=== PATIENT | female | born 1960 | race Caucasian/White ===

== ENCOUNTER 2023-08-30 18:40 | Inpatient (IN) | payer OTHER ==
[~2023-08-30] VITALS: Ht 160 cm; Wt 93.1 kg
[2023-08-30] MEDS ORDERED: ZOLO100T PO (19:02)
[2023-08-30] MEDS ORDERED: ONDA4TAB6 SL (19:02)
[2023-08-30] MEDS ORDERED: BUSP5TA PO (19:02)
[2023-08-30] MEDS ORDERED: LOSA50TA28 PO (19:05)
[2023-08-30] MEDS ORDERED: HYDR12.55 PO (19:05)
[2023-08-30 19:56] LABS: BASO % 0.1 % (0.0-1.0); EOS # 0.1 10^3/uL (0.0-0.5); HEMATOCRIT 39.6 % (36.0-47.0); HEMOGLOBIN 12.8 g/dl (12.0-15.5); LYMPH # 1.2 10^3/uL (1.5-5.0); LYMPH % 12.9 % (24.0-44.0); MEAN CORPUSCULAR HEMOGLOBIN 28.4 pg (27.0-33.0); MEAN CORPUSCULAR HGB CONC 32.3 g/dl (32.0-36.5); MONO # 0.5 10^3/uL (0.0-0.8); MONO % 5.3 % (2.0-8.0); NEUTROPHILS # 7.6 10^3/uL (1.5-8.5); NEUTROPHILS % 80.4 % (36.0-66.0); PLATELET COUNT, AUTOMATED 294 10^3/uL (150-450); WHITE BLOOD COUNT 9.4 10^3/uL (4.0-10.0)
[2023-08-30 20:01] LABS: LIPASE 36 U/L (12-53)
[2023-08-30 20:07] LABS: ALBUMIN 3.4 G/DL (3.2-5.2); ALKALINE PHOSPHATASE 69 U/L (46-116); ALT/SGPT 22 U/L (7.0-40); AST/SGOT 24 U/L (<34); BILIRUBIN,DIRECT 0.2 MG/DL (<0.4); BILIRUBIN,TOTAL 0.5 MG/DL (0.3-1.2); BLOOD UREA NITROGEN 11 MG/DL (9-23); CALCIUM LEVEL 9.4 MG/DL (8.3-10.6); CARBON DIOXIDE LEVEL 28 MMOL/L (20-31); CHLORIDE LEVEL 105 MMOL/L (98-107); CREATININE FOR GFR 0.79 MG/DL (0.55-1.30); GLOMERULAR FILTRATION RATE > 60.0 (>45); GLUCOSE, FASTING 124 MG/DL (74-106); POTASSIUM SERUM 2.9 MMOL/L (3.5-5.1); SODIUM LEVEL 141 MMOL/L (136-145); TOTAL PROTEIN 7.6 G/DL (5.7-8.2)
[2023-08-30] MEDS ORDERED: KETOROLAC 30 MG/ML 1ML VIAL IV ONE (20:30)
[2023-08-30] MEDS ORDERED: POTASSIUM CHLORIDE 10MEQ SR TABLET PO ONE (20:35)
[2023-08-30] MEDS ORDERED: ISOVUE-370 76% 100ML VIAL As Ordered ONE (20:36)
[2023-08-30 20:57] LABS: MAGNESIUM LEVEL 1.8 MG/DL (1.8-2.4)
[2023-08-30] MEDS: GASTROGRAFIN SOLUTION 30ML PO SCH ×2 (21:09→21:45)
[2023-08-30] MEDS: KCL 40MEQ in NS 1000ML 1,000 ML IV SCH (21:09)
[2023-08-30] MEDS ORDERED: MORPHINE 4 MG/ML 1ML VIAL IV ONE (23:35)
[2023-08-31] MEDS ORDERED: ACETAMINOPHEN *IV* 1,000 MG in IV 1 EA IV ONE (00:35)
[2023-08-31] MEDS ORDERED: PIPERACILLIN/TAZOBACTAM SOD 4.5 GM in D5W MINI-BAG PLUS 50 ML IV ONE (00:35)
[2023-08-31] MEDS ORDERED: HYDROMORPHONE HCL 0.5 MG/ 0.5 ML SYRINGE IV PRN (03:25)
[2023-08-31] MEDS ORDERED: UNRESOLVED CLARIFICATION ENTRY XX STA (03:38)
[2023-08-31 03:43] LABS: RSV AMPLIFICATION NEGATIVE (NEGATIVE)
[2023-08-31] MEDS ORDERED: hydrALAZINE 20MG/ML 1ML VIAL IV PRN (05:50)
[2023-08-31] MEDS: LR 1,000 ML IV SCH ×2 (06:28→17:39)
[2023-08-31] MEDS: HEPARIN SOD (PORCINE) 5000UNITS/ML 1ML VIAL/SYRINGE SC SCH ×3 (06:29→21:29)
[2023-08-31] MEDS: HYDROMORPHONE HCL 0.5 MG/ 0.5 ML SYRINGE IV PRN ×2 (06:30→21:31)
[2023-08-31] MEDS ORDERED: VALS1TAB67 PO (07:51)
[2023-08-31] MEDS ORDERED: ROSU5TAB5 PO (08:02)
[2023-08-31] MEDS ORDERED: HOME MED LIST COMPLETE! XX SCH (08:05)
[2023-08-31] MEDS: PIPERACILLIN/TAZOBACTAM SOD 3.375 GM in D5W MINI-BAG PLUS 50 ML IV SCH ×3 (09:36→21:29)
[2023-08-31] MEDS: KCL 40MEQ in NS 1000ML 1,000 ML IV SCH (12:29)
[2023-08-31] MEDS ORDERED: HYDROMORPHONE HCL 0.5 MG/ 0.5 ML SYRINGE IV ONE (13:15)
[2023-08-31] MEDS ORDERED: KETOROLAC 30 MG/ML 1ML VIAL IV ONE (13:15)
[2023-08-31] MEDS ORDERED: NITROGLYCERIN 2% OINT 1 GM *U/D* PKT TOP ONE (13:45)
[2023-08-31] MEDS ORDERED: cloNIDine 0.1MG TABLET PO ONE (13:45)
[2023-08-31] MEDS ORDERED: VALSARTAN 80 MG TAB (DIOVAN) PO ONE (13:45)
[2023-08-31 18:25] VITALS: BP 172/80; TEMP 97.7; O2SAT 96
[2023-08-31 19:48] VITALS: BP 162/77
[2023-08-31] MEDS: ONDANSETRON 4MG 2ML VIAL IV PRN (21:41)
[2023-08-31 22:00] VITALS: TEMP 98; O2SAT 94
[2023-08-31 22:07] LABS: BLOOD UREA NITROGEN 8 MG/DL (9-23); CALCIUM LEVEL 7.8 MG/DL (8.3-10.6); CARBON DIOXIDE LEVEL 27 MMOL/L (20-31); CHLORIDE LEVEL 109 MMOL/L (98-107); CREATININE FOR GFR 0.72 MG/DL (0.55-1.30); GLOMERULAR FILTRATION RATE > 60.0 (>45); GLUCOSE, FASTING 100 MG/DL (74-106); POTASSIUM SERUM 3.6 MMOL/L (3.5-5.1); SODIUM LEVEL 141 MMOL/L (136-145)
[2023-09-01] VITALS (10 sets, daily range): BP systolic 116–166; BP diastolic 67–96; TEMP 97–98.2; O2SAT 78–96
[2023-09-01] MEDS: LR 1,000 ML IV SCH ×2 (01:37→03:25)
[2023-09-01] MEDS: KCL 40MEQ in NS 1000ML 1,000 ML IV SCH ×2 (01:37→13:00)
[2023-09-01] MEDS: PIPERACILLIN/TAZOBACTAM SOD 3.375 GM in D5W MINI-BAG PLUS 50 ML IV SCH ×4 (03:14→21:14)
[2023-09-01] MEDS ORDERED: ACETAMINOPHEN *IV* 1,000 MG in IV 1 EA IV ONE (05:20)
[2023-09-01] MEDS: HEPARIN SOD (PORCINE) 5000UNITS/ML 1ML VIAL/SYRINGE SC SCH ×3 (05:23→21:14)
[2023-09-01] MEDS: ONDANSETRON 4MG 2ML VIAL IV PRN ×2 (05:23→14:51)
[2023-09-01] MEDS ORDERED: ACETAMINOPHEN TAB 650MG DOSE (2X325MG) PO ONE (05:25)
[2023-09-01] MEDS: VALSARTAN 80 MG TAB (DIOVAN) PO SCH (05:42)
[2023-09-01] MEDS ORDERED: **hydrALAZINE** 10 MG TAB PO PRN (07:15)
[2023-09-01 07:52] LABS: BLOOD UREA NITROGEN 7 MG/DL (9-23); CALCIUM LEVEL 7.8 MG/DL (8.3-10.6); CARBON DIOXIDE LEVEL 28 MMOL/L (20-31); CHLORIDE LEVEL 111 MMOL/L (98-107); CREATININE FOR GFR 0.77 MG/DL (0.55-1.30); GLOMERULAR FILTRATION RATE > 60.0 (>45); GLUCOSE, FASTING 101 MG/DL (74-106); POTASSIUM SERUM 4.1 MMOL/L (3.5-5.1); SODIUM LEVEL 143 MMOL/L (136-145)
[2023-09-01] MEDS ORDERED: VALSARTAN 80 MG TAB (DIOVAN) PO ONE (08:00)
[2023-09-01] MEDS ORDERED: ONDANSETRON 4MG 2ML VIAL IV ONE (08:00)
[2023-09-01] MEDS ORDERED: cloNIDine 0.1MG TABLET PO ONE (09:00)
[2023-09-01 09:49] LABS: ALBUMIN 2.4 G/DL (3.2-5.2); ALKALINE PHOSPHATASE 55 U/L (46-116); ALT/SGPT 17 U/L (7.0-40); AST/SGOT 20 U/L (<34); BILIRUBIN,TOTAL 0.6 MG/DL (0.3-1.2); TOTAL PROTEIN 5.8 G/DL (5.7-8.2)
[2023-09-01 09:59] LABS: BASO % 0.7 % (0.0-1.0); EOS # 0.1 10^3/uL (0.0-0.5); EOS % 2.5 % (0.0-3.0); HEMATOCRIT 33.1 % (36.0-47.0); LYMPH # 1.2 10^3/uL (1.5-5.0); LYMPH % 27.4 % (24.0-44.0); MEAN CORPUSCULAR HEMOGLOBIN 28.7 pg (27.0-33.0); MEAN CORPUSCULAR HGB CONC 31.4 g/dl (32.0-36.5); MEAN CORPUSCULAR VOLUME 91.4 fl (80.0-96.0); MONO # 0.5 10^3/uL (0.0-0.8); MONO % 11.1 % (2.0-8.0); NEUTROPHILS # 2.5 10^3/uL (1.5-8.5); NEUTROPHILS % 58.1 % (36.0-66.0); PLATELET COUNT, AUTOMATED 194 10^3/uL (150-450); RED BLOOD COUNT 3.62 10^6/uL (4.00-5.40); WHITE BLOOD COUNT 4.3 10^3/uL (4.0-10.0)
[2023-09-01 10:00] LABS: HEMOGLOBIN 10.4 g/dl (12.0-15.5)
[2023-09-01] MEDS ORDERED: ACETAMINOPHEN 500 MG TAB PO ONE (16:35)
[2023-09-01] MEDS ORDERED: RIZATRIPTAN BENZOATE 10 MG TAB PO PRN (16:35)
[2023-09-01] MEDS ORDERED: METOCLOPRAMIDE INJ 10MG/2ML VIAL IV ONE (17:00)
[2023-09-01] MEDS: ACETAMINOPHEN TAB 650MG DOSE (2X325MG) PO PRN (21:20)
[2023-09-02] VITALS (13 sets, daily range): BP systolic 136–169; BP diastolic 73–97; TEMP 97.1–99; O2SAT 90–96
[2023-09-02] MEDS: PIPERACILLIN/TAZOBACTAM SOD 3.375 GM in D5W MINI-BAG PLUS 50 ML IV SCH ×4 (02:27→21:59)
[2023-09-02] MEDS: KCL 40MEQ in NS 1000ML 1,000 ML IV SCH (02:28)
[2023-09-02 05:38] LABS: BASO % 0.4 % (0.0-1.0); EOS # 0.1 10^3/uL (0.0-0.5); EOS % 2.6 % (0.0-3.0); HEMATOCRIT 33.5 % (36.0-47.0); HEMOGLOBIN 10.5 g/dl (12.0-15.5); LYMPH # 1.3 10^3/uL (1.5-5.0); LYMPH % 27.6 % (24.0-44.0); MEAN CORPUSCULAR HEMOGLOBIN 28.5 pg (27.0-33.0); MEAN CORPUSCULAR HGB CONC 31.3 g/dl (32.0-36.5); MEAN CORPUSCULAR VOLUME 90.8 fl (80.0-96.0); MONO # 0.5 10^3/uL (0.0-0.8); MONO % 9.6 % (2.0-8.0); NEUTROPHILS # 2.8 10^3/uL (1.5-8.5); NEUTROPHILS % 59.6 % (36.0-66.0); PLATELET COUNT, AUTOMATED 173 10^3/uL (150-450); RED BLOOD COUNT 3.69 10^6/uL (4.00-5.40); WHITE BLOOD COUNT 4.7 10^3/uL (4.0-10.0)
[2023-09-02] MEDS: HEPARIN SOD (PORCINE) 5000UNITS/ML 1ML VIAL/SYRINGE SC SCH ×3 (05:49→21:59)
[2023-09-02] MEDS: ONDANSETRON 4MG 2ML VIAL IV PRN ×3 (05:49→20:31)
[2023-09-02] MEDS: ACETAMINOPHEN TAB 650MG DOSE (2X325MG) PO PRN ×3 (05:50→20:31)
[2023-09-02 05:58] LABS: BLOOD UREA NITROGEN 6 MG/DL (9-23); CARBON DIOXIDE LEVEL 26 MMOL/L (20-31); CHLORIDE LEVEL 109 MMOL/L (98-107); CREATININE FOR GFR 0.83 MG/DL (0.55-1.30); GLOMERULAR FILTRATION RATE > 60.0 (>45); GLUCOSE, FASTING 96 MG/DL (74-106); MAGNESIUM LEVEL 1.8 MG/DL (1.8-2.4); POTASSIUM SERUM 3.9 MMOL/L (3.5-5.1); SODIUM LEVEL 141 MMOL/L (136-145)
[2023-09-02] MEDS ORDERED: NITROGLYCERIN 0.3MG SUBL TAB SL STA (06:58)
[2023-09-02] MEDS ORDERED: FUROSEMIDE 20MG/2ML VIAL IV STA (07:03)
[2023-09-02] MEDS ORDERED: IPRATROPIUM 0.5MG/ALBUTEROL 2.5MG INH SOL UD 3ML (DUONEB) NEB STA (07:03)
[2023-09-02] MEDS ORDERED: PANTOPRAZOLE 40MG VIAL IV ONE (07:25)
[2023-09-02] MEDS ORDERED: SUCRALFATE SUSP 1GM/10ML UD PO ONE (07:25)
[2023-09-02] MEDS ORDERED: MORPHINE 2 MG/ML 1ML VIAL IV ONE (07:25)
[2023-09-02] MEDS ORDERED: ALPRAZolam 0.5 MG TAB PO PRN (07:35)
[2023-09-02] MEDS ORDERED: FUROSEMIDE 40MG/4ML VIAL IV ONE (07:45)
[2023-09-02 07:56] LABS: CK-MB VALUE MASS < 1.0 NG/ML (<3.6)
[2023-09-02 07:58] LABS: CPK CREATINE PHOSPHOKINASE 38 U/L (34-145); MB/CK RELATIVE INDEX 2.63 (< OR =4)
[2023-09-02] MEDS ORDERED: busPIRone 5 MG TAB PO ONE (08:00)
[2023-09-02] MEDS ORDERED: ALPRAZolam 0.5 MG TAB PO ONE (08:00)
[2023-09-02] MEDS ORDERED: SERTRALINE HCL 50 MG TAB PO ONE (08:00)
[2023-09-02] MEDS: VALSARTAN 80 MG TAB (DIOVAN) PO SCH (08:26)
[2023-09-02] MEDS ORDERED: ISOVUE-370 76% 100ML VIAL As Ordered ONE (08:48)
[2023-09-02 13:38] LABS: CK-MB VALUE MASS < 1.0 NG/ML (<3.6)
[2023-09-02 13:39] LABS: CPK CREATINE PHOSPHOKINASE 56 U/L (34-145); MB/CK RELATIVE INDEX 1.78 (< OR =4)
[2023-09-03] VITALS (9 sets, daily range): BP systolic 112–162; BP diastolic 57–83; TEMP 97.7–98.9; O2SAT 90–97
[2023-09-03] MEDS: PIPERACILLIN/TAZOBACTAM SOD 3.375 GM in D5W MINI-BAG PLUS 50 ML IV SCH ×4 (03:48→21:23)
[2023-09-03] MEDS: ONDANSETRON 4MG 2ML VIAL IV PRN ×2 (05:48→14:41)
[2023-09-03] MEDS: HEPARIN SOD (PORCINE) 5000UNITS/ML 1ML VIAL/SYRINGE SC SCH ×3 (05:48→21:24)
[2023-09-03 05:56] LABS: BASO % 0.5 % (0.0-1.0); EOS # 0.2 10^3/uL (0.0-0.5); EOS % 3.6 % (0.0-3.0); HEMATOCRIT 36.3 % (36.0-47.0); HEMOGLOBIN 11.5 g/dl (12.0-15.5); LYMPH # 1.1 10^3/uL (1.5-5.0); LYMPH % 25.3 % (24.0-44.0); MEAN CORPUSCULAR HEMOGLOBIN 28.4 pg (27.0-33.0); MEAN CORPUSCULAR HGB CONC 31.7 g/dl (32.0-36.5); MEAN CORPUSCULAR VOLUME 89.6 fl (80.0-96.0); MONO # 0.4 10^3/uL (0.0-0.8); MONO % 8.8 % (2.0-8.0); NEUTROPHILS # 2.6 10^3/uL (1.5-8.5); NEUTROPHILS % 61.6 % (36.0-66.0); PLATELET COUNT, AUTOMATED 198 10^3/uL (150-450); RED BLOOD COUNT 4.05 10^6/uL (4.00-5.40); WHITE BLOOD COUNT 4.2 10^3/uL (4.0-10.0)
[2023-09-03 06:28] LABS: BLOOD UREA NITROGEN 7 MG/DL (9-23); CALCIUM LEVEL 8.6 MG/DL (8.3-10.6); CARBON DIOXIDE LEVEL 28 MMOL/L (20-31); CHLORIDE LEVEL 103 MMOL/L (98-107); CREATININE FOR GFR 0.92 MG/DL (0.55-1.30); GLOMERULAR FILTRATION RATE > 60.0 (>45); GLUCOSE, FASTING 102 MG/DL (74-106); MAGNESIUM LEVEL 1.8 MG/DL (1.8-2.4); POTASSIUM SERUM 3.2 MMOL/L (3.5-5.1); SODIUM LEVEL 139 MMOL/L (136-145)
[2023-09-03] MEDS: ACETAMINOPHEN TAB 650MG DOSE (2X325MG) PO PRN ×2 (07:51→18:58)
[2023-09-03] MEDS ORDERED: MAG SULF 1GM/100ML (MAG RUN) 1 GM in IV 1 EA IV ONE (08:00)
[2023-09-03] MEDS ORDERED: POTASSIUM CHLORIDE 10% LIQ 20MEQ/15ML UDC PO SCH (08:00)
[2023-09-03] MEDS ORDERED: busPIRone 5 MG TAB PO ONE (09:00)
[2023-09-03] MEDS ORDERED: SERTRALINE HCL 50 MG TAB PO ONE (09:00)
[2023-09-03] MEDS ORDERED: FUROSEMIDE 100MG/10ML VIAL IV ONE (09:00)
[2023-09-03] MEDS ORDERED: POTASSIUM CHLORIDE 10MEQ SR TABLET PO ONE (09:00)
[2023-09-03] MEDS ORDERED: KCL 10MEQ/100ML SWI (KRUN) 10 MEQ in IV 1 EA IV ONE (09:00)
[2023-09-03] MEDS ORDERED: PILL CUTTER 1 EACH XX PRN (09:20)
[2023-09-03] MEDS: SERTRALINE 100 MG TAB PO SCH (09:33)
[2023-09-03] MEDS: VALSARTAN 80 MG TAB (DIOVAN) PO SCH (09:33)
[2023-09-03] MEDS: busPIRone 5 MG TAB PO SCH (10:46)
[2023-09-03 12:17] LABS: MAGNESIUM LEVEL 2.1 MG/DL (1.8-2.4); POTASSIUM SERUM 3.6 MMOL/L (3.5-5.1)
[2023-09-03 18:44] LABS: MAGNESIUM LEVEL 1.8 MG/DL (1.8-2.4); POTASSIUM SERUM 3.4 MMOL/L (3.5-5.1)
[2023-09-03] MEDS: POTASSIUM CHLORIDE 10MEQ SR TABLET PO SCH (21:24)
[2023-09-04 03:42] VITALS: BP 145/80; TEMP 97.4; O2SAT 92
[2023-09-04] MEDS: PIPERACILLIN/TAZOBACTAM SOD 3.375 GM in D5W MINI-BAG PLUS 50 ML IV SCH ×2 (04:30→09:07)
[2023-09-04] MEDS: HEPARIN SOD (PORCINE) 5000UNITS/ML 1ML VIAL/SYRINGE SC SCH (06:14)
[2023-09-04 06:28] LABS: BASO % 0.4 % (0.0-1.0); EOS # 0.2 10^3/uL (0.0-0.5); EOS % 4.2 % (0.0-3.0); HEMATOCRIT 38.6 % (36.0-47.0); HEMOGLOBIN 12.2 g/dl (12.0-15.5); LYMPH # 1.3 10^3/uL (1.5-5.0); LYMPH % 29.4 % (24.0-44.0); MEAN CORPUSCULAR HEMOGLOBIN 28.2 pg (27.0-33.0); MEAN CORPUSCULAR HGB CONC 31.6 g/dl (32.0-36.5); MEAN CORPUSCULAR VOLUME 89.4 fl (80.0-96.0); MONO # 0.6 10^3/uL (0.0-0.8); MONO % 12.2 % (2.0-8.0); NEUTROPHILS # 2.4 10^3/uL (1.5-8.5); NEUTROPHILS % 53.6 % (36.0-66.0); PLATELET COUNT, AUTOMATED 208 10^3/uL (150-450); RED BLOOD COUNT 4.32 10^6/uL (4.00-5.40); WHITE BLOOD COUNT 4.5 10^3/uL (4.0-10.0)
[2023-09-04 07:05] LABS: BLOOD UREA NITROGEN 9 MG/DL (9-23); CALCIUM LEVEL 8.8 MG/DL (8.3-10.6); CARBON DIOXIDE LEVEL 29 MMOL/L (20-31); CHLORIDE LEVEL 103 MMOL/L (98-107); CREATININE FOR GFR 0.89 MG/DL (0.55-1.30); GLOMERULAR FILTRATION RATE > 60.0 (>45); GLUCOSE, FASTING 103 MG/DL (74-106); MAGNESIUM LEVEL 1.9 MG/DL (1.8-2.4); POTASSIUM SERUM 3.9 MMOL/L (3.5-5.1); SODIUM LEVEL 138 MMOL/L (136-145)
[2023-09-04 07:17] VITALS: BP 164/82; TEMP 97.9; O2SAT 94
[2023-09-04] MEDS ORDERED: POTASSIUM CHLORIDE 10MEQ SR TABLET PO SCH (09:00)
[2023-09-04 09:07] VITALS: BP 164/82
[2023-09-04] MEDS: VALSARTAN 80 MG TAB (DIOVAN) PO SCH (09:07)
[2023-09-04] MEDS: busPIRone 5 MG TAB PO SCH (09:08)
[2023-09-04] MEDS: POTASSIUM CHLORIDE 10MEQ SR TABLET PO SCH (09:08)
[2023-09-04] MEDS: SERTRALINE 100 MG TAB PO SCH (09:08)
[2023-09-04] MEDS ORDERED: AMOX875T2 PO (09:24)
[2023-09-04] MEDS ORDERED: BACI1CAP PO (09:24)
[2023-09-04] MEDS ORDERED: NIRM1TAB14 PO (09:24)
[2023-09-04] MEDS: ACETAMINOPHEN TAB 650MG DOSE (2X325MG) PO PRN (09:51)
[2023-09-04] MEDS ORDERED: ONDA4TAB6 PO (15:33)
[2023-09-04] MEDS ORDERED: PERC10TA26 PO (15:36)
== END 2023-09-04 12:37 | disposition home or self-care (01) | DRG 392 ==
LOC: M ED 18:40 → EDBD 18:40 → M ED INP 08-31 03:25 → ENRESERV 08-31 16:00 → M MS4PR 08-31 18:22 → M ICU 09-02 07:48 → M PCU 09-02 09:11
PROVIDERS: ADMIT Internal Medicine; ATTEND General Practice
PROC: B246ZZZ Ultrasonography of Right and Left Heart (ICD-10-PCS; principal; 2023-09-02)
DX: K57.20 Diverticulitis of large intestine with perforation and abscess without bleeding (principal); I10 Essential (primary) hypertension; F41.9 Anxiety disorder, unspecified; E87.6 Hypokalemia; R51.9 Headache, unspecified; I16.0 Hypertensive urgency; R07.89 Other chest pain; E87.70 Fluid overload, unspecified; I27.20 Pulmonary hypertension, unspecified; F32.A Depression, unspecified; Z20.822 Contact with and (suspected) exposure to COVID-19; Z79.899 Other long term (current) drug therapy; I08.1 Rheumatic disorders of both mitral and tricuspid valves